=== PATIENT | female | born 1990 | race Two or more races ===

== ENCOUNTER 2017-06-04 22:50 | Outpatient (CLI) | payer BC, OTHER ==
[~2017-06-04 22:50] MED LIST: ALBUTEROL SULF8.5 GM IH; ALBUTEROL17 GM IH; ANTIVERT25 MG PO; BACTRIM,SEPT1 TABLET PO; BENADRYL50 MG PO; EPIPEN ADU0.3 MG/0.3 IM; Feosol PO; IRON160 M1 PO; KLONOPIN0.5 M1 PO; MOTRIN600 MG PO; Motrin PO; NATALCARE RX1 TABLET PO; PERCOCET 5/31 TABLET PO; PREDNISONE50 MG PO; PRENATAL1 EACH PO; PROMETHAZINE HC50 M1 PO; Percocet 5/325,Endoc PO; SYMBICORT60 INHALA1 IH; SYMBICORT60 INHALAT IH; ULTRAM50 MG PO; VENTOLIN HFA18 GM IH; ZOFRAN ODT4 MG PO; ZOFRAN4 MG PO; ZOLOFT25 MG PO; ZYRTEC10 M2 PO
[2017-06-04 23:10] VITALS: BP 108/70
== END 2017-06-05 01:16 | disposition home or self-care (01) ==
LOC: LDRP-OP 22:50 → 2WEST 22:52
DX: O46.92 Antepartum hemorrhage, unspecified, second trimester (principal); Z3A.24 24 weeks gestation of pregnancy
CPT/HCPCS: 59025; G0378

== ENCOUNTER 2017-07-13 04:03 | Outpatient (CLI) | payer BC, OTHER ==
[~2017-07-13] VITALS: Ht 165.1 cm; Wt 99.8 kg
[2017-07-13 04:30] VITALS: BP 94/68
[2017-07-13] MEDS ORDERED: PRENATAL TABLE1 EAC3 PO (04:45)
[2017-07-13] MEDS ORDERED: ALLEGRA60 MG PO (04:45)
[2017-07-13 06:02] VITALS: BP 109/57
[2017-07-13 06:41] LABS: EOSINOPHIL COUNT 0.3 K/uL (0-0.3); HEMATOCRIT 31.8 % (36.0-46.0); IMMATURE GRANULOCYTE (%) 0.6 % (0.0-0.7); IMMATURE GRANULOCYTE COUNT 0.1 K/uL; INSTRUMENT ABS NEUTROPHIL CT 4.9 K/uL; MCH 29.3 PG (29.0-34.0); MCHC 33.3 G/DL (30.0-36.0); MCV 87.8 FL (83-99); MEAN PLAT.VOLUME 10.1 uM^3 (9.5-12.4); MONOCYTE (%) 7.3 % (3-12); MONOCYTE COUNT 0.6 K/uL (0-0.8); NEUTROPHIL (%) 62.4 % (45-76); NEUTROPHIL COUNT 4.9 K/uL (1.8-6.4); PLATELET COUNT 261 K/uL (156-360); RBC DIS.WIDTH-CV 12.9 % (11.8-14.6); RBC DIS.WIDTH-SD 41.5 % (39-53); RED BLOOD COUNT 3.62 M/uL (3.80-5.20); WHITE BLOOD COUNT 7.8 K/uL (4.1-10.2)
[2017-07-13 07:05] LABS: ALKALINE PHOSPHATASE 76 IU/L (3-129); ANION GAP 9 MEQ/L (2-14); CHLORIDE 105 MEQ/L (99-109); GFR ESTIMATE (CALCULATED) > 59 mL/min/; GLUCOSE 91 mg/dL (70-99); POTASSIUM 3.9 MEQ/L (3.7-5.4); SAMPLE HEMOLYSIS CHECK 0; SAMPLE ICTERIC CHECK 0; SAMPLE LIPEMIA CHECK 0; SODIUM 136 MEQ/L (136-147); TOTAL BILIRUBIN 0.3 MG/DL (0.0-1.0); UREA NITROGEN (BUN) 6 mg/dL (9-23)
[2017-07-13 07:50] VITALS: BP 79/52
[2017-07-13 07:52] VITALS: BP 94/54
[2017-07-13 08:05] LABS: ADD MIUA? NO; BILIRUBIN NEGATIVE; BLOOD NEGATIVE; COLOR YELLOW ((YELLOW)); GLUCOSE (STRIP) NEGATIVE; KETONES NEGATIVE; LEUKOCYTES NEGATIVE; NITRITE NEGATIVE; PROTEIN (STRIP) NEGATIVE; SPECIFIC GRAVITY 1.011 (1.000-1.030); UCUL ADDED? NO; UROBILINOGEN 0.2 MG/DL (0.2-1.0)
[2017-07-13 08:55] VITALS: BP 127/60
== END 2017-07-13 09:20 | disposition home or self-care (01) ==
LOC: LDRP-OP 04:03 → 2WEST 04:04 → LDRP-OP 10-13 01:21
PROVIDERS: Advanced Practice Midwife
DX: O26.893 Other specified pregnancy related conditions, third trimester (principal); R19.7 Diarrhea, unspecified; M54.5 Low back pain; R42 Dizziness and giddiness; R51 Headache; R11.10 Vomiting, unspecified; Z3A.31 31 weeks gestation of pregnancy
CPT/HCPCS: 59025; 80053; 81003; 85025; G0378

== ENCOUNTER 2017-08-02 17:45 | Emergency (ER) | payer BC, OTHER ==
[~2017-08-02] VITALS: Ht 165.1 cm; Wt 104.9 kg
[~2017-08-02 17:45] MED LIST changes: +ALLEGRA60 MG PO; +PRENATAL TABLE1 EAC3 PO
[2017-08-02] MEDS ORDERED: BENADRYL50 MG PO (18:16)
[2017-08-02 18:45] VITALS: BP 122/72
== END 2017-08-02 18:46 | disposition home or self-care (01) ==
LOC: EME 17:45
DX: O26.893 Other specified pregnancy related conditions, third trimester (principal); T78.1XXA Other adverse food reactions, not elsewhere classified, initial encounter; Z3A.35 35 weeks gestation of pregnancy; Z91.010 Allergy to peanuts; J45.909 Unspecified asthma, uncomplicated
CPT/HCPCS: 99281; 99284; J1200

== ENCOUNTER 2017-08-21 01:56 | Inpatient (IN) | payer BC, OTHER ==
[~2017-08-21] VITALS: Ht 165.1 cm; Wt 104.5 kg
[2017-08-21] VITALS (20 sets, daily range): BP systolic 108–139; BP diastolic 53–92
[2017-08-21 03:18] LABS: EOSINOPHIL (%) 3.8 % (0-5); EOSINOPHIL COUNT 0.3 K/uL (0-0.3); HEMATOCRIT 34.4 % (36.0-46.0); IMMATURE GRANULOCYTE (%) 0.4 % (0.0-0.7); INSTRUMENT ABS NEUTROPHIL CT 4.6 K/uL; LYMPHOCYTE COUNT 2.7 K/uL (1.0-2.8); MCH 28.2 PG (29.0-34.0); MCHC 33.1 G/DL (30.0-36.0); MCV 85.1 FL (83-99); MEAN PLAT.VOLUME 10.6 uM^3 (9.5-12.4); MONOCYTE (%) 8.3 % (3-12); MONOCYTE COUNT 0.7 K/uL (0-0.8); NEUTROPHIL COUNT 4.6 K/uL (1.8-6.4); PLATELET COUNT 265 K/uL (156-360); RBC DIS.WIDTH-CV 13.1 % (11.8-14.6); RBC DIS.WIDTH-SD 40.4 % (39-53); RED BLOOD COUNT 4.04 M/uL (3.80-5.20); WHITE BLOOD COUNT 8.4 K/uL (4.1-10.2)
[2017-08-21] MEDS ORDERED: IBUPROFEN800 MG PO (17:59)
[2017-08-22 07:59] VITALS: BP 121/67
[2017-08-22 14:50] VITALS: BP 130/64
[2017-08-22 23:06] VITALS: BP 123/63
[2017-08-23 11:17] VITALS: BP 124/65
== END 2017-08-23 14:36 | disposition home or self-care (01) | DRG 775 ==
LOC: LDRP-OP → 2WEST 01:57 → LDRP-OP 10-13 09:32
PROVIDERS: Midwife
PROC: 3E033VJ Introduction of Other Hormone into Peripheral Vein, Percutaneous Approach (ICD-10-PCS; principal; 2017-08-21)
PROC: 10E0XZZ Delivery of Products of Conception, External Approach (ICD-10-PCS; principal; 2017-08-21)
PROC: 10907ZC Drainage of Amniotic Fluid, Therapeutic from Products of Conception, Via Natural or Artificial Opening (ICD-10-PCS; principal; 2017-08-21)
DX: O60.14X0 Preterm labor third trimester with preterm delivery third trimester, not applicable or unspecified (principal); O42.013 Preterm premature rupture of membranes, onset of labor within 24 hours of rupture, third trimester; O99.52 Diseases of the respiratory system complicating childbirth; J45.909 Unspecified asthma, uncomplicated; O99.214 Obesity complicating childbirth; E66.9 Obesity, unspecified; Z68.34 Body mass index [BMI] 34.0-34.9, adult; Z3A.36 36 weeks gestation of pregnancy; Z37.0 Single live birth; Z79.899 Other long term (current) drug therapy
CPT/HCPCS: 85025; 88307; J0702; J2405; J7120